=== PATIENT | female | born 1970 | race Asian ===

== ENCOUNTER 2019-08-02 15:46 | Emergency (ER) | payer OTHER ==
[~2019-08-02] VITALS: Ht 172.7 cm; Wt 80.7 kg
[2019-08-02 15:55] VITALS: TEMP 99.6
[2019-08-02 18:40] VITALS: BP 158/78
== END 2019-08-02 18:40 | disposition home or self-care (01) ==
LOC: ED 15:46
DX: S13.4XXA Sprain of ligaments of cervical spine, initial encounter (principal); S33.5XXA Sprain of ligaments of lumbar spine, initial encounter; N39.0 Urinary tract infection, site not specified; Y93.F9 Activity, other caregiving; X50.9XXA Other and unspecified overexertion or strenuous movements or postures, initial encounter
CPT/HCPCS: 80320; 81000; 87086; 87088; 96372; 99283; J1885